=== PATIENT | female | born 1950 | race Caucasian/White ===

== ENCOUNTER → 2017-05-09 | Outpatient (CLI) | payer MEDICARE ==
[~2017-05-09] MED LIST: ASPIRIN125 MG PO; AZITHROMYCIN 2250 MG PO; CARISOPRODOL; COMBIVENT INH; GUAIFENESIN L1200 MG PO; HYDROCODONE; ONDANSETRON ODT4 MG PO; PREDNISONE 10 M10 M1 PO
== END ==
LOC: M.CT 10:37
DX: J43.8 Other emphysema (principal); R91.8 Other nonspecific abnormal finding of lung field; K21.9 Gastro-esophageal reflux disease without esophagitis; Z87.891 Personal history of nicotine dependence

== ENCOUNTER → 2020-04-05 | Outpatient (CLI) | payer MEDICARE, MEDICAID ==
[~2020-04-05] MED LIST changes: +BYSTOLIC 5 MG5 MG PO; +FLONASE 0.05%50 MCG NASAL; +IBUPROFEN 600600 M1 PO; +IMITREX100 MG PO; +NORCO 10-325 T1 EACH PO; +SOMA350 MG PO; +TRAZODONE HCL50 MG PO
== END ==
LOC: M.PC 10:12
PROVIDERS: ATTEND Anesthesiology Pain Medicine
DX: M19.90 Unspecified osteoarthritis, unspecified site (principal); M54.16 Radiculopathy, lumbar region; G43.109 Migraine with aura, not intractable, without status migrainosus; M46.1 Sacroiliitis, not elsewhere classified; F32.9 Major depressive disorder, single episode, unspecified; M35.3 Polymyalgia rheumatica

== ENCOUNTER → 2020-04-12 | Outpatient (CLI) | payer MEDICARE, MEDICAID | END | disposition home or self-care (01) | LOC: M.PC 08:40 | PROVIDERS: ATTEND Anesthesiology Pain Medicine | DX: M54.16 Radiculopathy, lumbar region (principal); G89.29 Other chronic pain; M35.3 Polymyalgia rheumatica; F32.9 Major depressive disorder, single episode, unspecified; M19.90 Unspecified osteoarthritis, unspecified site; Z98.890 Other specified postprocedural states; Z79.899 Other long term (current) drug therapy; Z88.8 Allergy status to other drugs, medicaments and biological substances ==

== ENCOUNTER → 2020-05-19 | Outpatient (CLI) | payer OTHER, MEDICAID | END | disposition home or self-care (01) | LOC: M.PC 08:22 | PROVIDERS: ATTEND Anesthesiology Pain Medicine | DX: M54.16 Radiculopathy, lumbar region (principal); G89.29 Other chronic pain; I10 Essential (primary) hypertension; J44.9 Chronic obstructive pulmonary disease, unspecified; F32.9 Major depressive disorder, single episode, unspecified; M53.3 Sacrococcygeal disorders, not elsewhere classified; M19.90 Unspecified osteoarthritis, unspecified site; G43.109 Migraine with aura, not intractable, without status migrainosus; M35.3 Polymyalgia rheumatica; Z98.890 Other specified postprocedural states; Z79.899 Other long term (current) drug therapy; Z90.710 Acquired absence of both cervix and uterus; Z90.49 Acquired absence of other specified parts of digestive tract ==

== ENCOUNTER → 2020-07-05 | Outpatient (CLI) | payer OTHER, MEDICAID ==
[~2020-07-05] MED LIST changes: +MOBIC15 MG PO
== END | disposition home or self-care (01) ==
LOC: M.PC 10:57
PROVIDERS: ATTEND Anesthesiology Pain Medicine
DX: M54.16 Radiculopathy, lumbar region (principal); G89.29 Other chronic pain; I10 Essential (primary) hypertension; J44.9 Chronic obstructive pulmonary disease, unspecified; G43.109 Migraine with aura, not intractable, without status migrainosus; M19.90 Unspecified osteoarthritis, unspecified site; F32.9 Major depressive disorder, single episode, unspecified; M35.3 Polymyalgia rheumatica; Z98.890 Other specified postprocedural states; Z79.899 Other long term (current) drug therapy; Z90.710 Acquired absence of both cervix and uterus; Z88.8 Allergy status to other drugs, medicaments and biological substances

== ENCOUNTER → 2020-08-04 | Outpatient (CLI) | payer OTHER, MEDICAID | LOC: M.PC 08-02 11:00 | PROVIDERS: ATTEND Anesthesiology Pain Medicine | DX: M48.07 Spinal stenosis, lumbosacral region (principal); M25.78 Osteophyte, vertebrae; M54.16 Radiculopathy, lumbar region; M35.3 Polymyalgia rheumatica; G43.909 Migraine, unspecified, not intractable, without status migrainosus; M19.90 Unspecified osteoarthritis, unspecified site; M53.3 Sacrococcygeal disorders, not elsewhere classified; F32.9 Major depressive disorder, single episode, unspecified ==

== ENCOUNTER → 2020-09-01 | Outpatient (CLI) | payer OTHER, MEDICAID | LOC: M.PC 09:30 | PROVIDERS: ATTEND Anesthesiology Pain Medicine | DX: M54.16 Radiculopathy, lumbar region (principal); J44.9 Chronic obstructive pulmonary disease, unspecified; G43.101 Migraine with aura, not intractable, with status migrainosus; M19.90 Unspecified osteoarthritis, unspecified site; M46.1 Sacroiliitis, not elsewhere classified; F32.9 Major depressive disorder, single episode, unspecified; M35.3 Polymyalgia rheumatica; M51.16 Intervertebral disc disorders with radiculopathy, lumbar region; M48.061 Spinal stenosis, lumbar region without neurogenic claudication ==

== ENCOUNTER → 2020-09-29 | Outpatient (CLI) | payer OTHER, MEDICAID | LOC: M.PC 09:53 | PROVIDERS: ATTEND Anesthesiology Pain Medicine | DX: M54.16 Radiculopathy, lumbar region (principal); J44.9 Chronic obstructive pulmonary disease, unspecified; G43.909 Migraine, unspecified, not intractable, without status migrainosus; M19.90 Unspecified osteoarthritis, unspecified site; F32.9 Major depressive disorder, single episode, unspecified; M35.3 Polymyalgia rheumatica; Z79.891 Long term (current) use of opiate analgesic; Z79.899 Other long term (current) drug therapy; Z88.5 Allergy status to narcotic agent; Z88.6 Allergy status to analgesic agent ==

== ENCOUNTER → 2020-10-11 | Outpatient (CLI) | payer OTHER, MEDICAID | END | disposition home or self-care (01) | LOC: M.PC 09:49 | PROVIDERS: ATTEND Anesthesiology Pain Medicine | DX: M54.16 Radiculopathy, lumbar region (principal); G89.29 Other chronic pain; I10 Essential (primary) hypertension; J44.9 Chronic obstructive pulmonary disease, unspecified; M19.90 Unspecified osteoarthritis, unspecified site; F32.9 Major depressive disorder, single episode, unspecified; G43.109 Migraine with aura, not intractable, without status migrainosus; Z98.890 Other specified postprocedural states; Z79.899 Other long term (current) drug therapy; Z90.710 Acquired absence of both cervix and uterus; Z88.8 Allergy status to other drugs, medicaments and biological substances ==

== ENCOUNTER → 2020-10-27 | Outpatient (CLI) | payer OTHER, MEDICAID | LOC: M.PC 09:00 | PROVIDERS: ATTEND Anesthesiology Pain Medicine | DX: M54.16 Radiculopathy, lumbar region (principal); J44.9 Chronic obstructive pulmonary disease, unspecified; G43.109 Migraine with aura, not intractable, without status migrainosus; I10 Essential (primary) hypertension; M19.90 Unspecified osteoarthritis, unspecified site; M41.9 Scoliosis, unspecified; F32.89 Other specified depressive episodes; M35.3 Polymyalgia rheumatica; M87.88 Other osteonecrosis, other site; Z90.710 Acquired absence of both cervix and uterus; Z68.22 Body mass index [BMI] 22.0-22.9, adult; Z88.8 Allergy status to other drugs, medicaments and biological substances; Z79.891 Long term (current) use of opiate analgesic; Z79.899 Other long term (current) drug therapy ==

== ENCOUNTER → 2020-11-22 | Outpatient (CLI) | payer OTHER, MEDICAID | END | disposition home or self-care (01) | LOC: M.PC 10:28 | PROVIDERS: ATTEND Anesthesiology Pain Medicine | DX: M54.16 Radiculopathy, lumbar region (principal); G89.29 Other chronic pain; I10 Essential (primary) hypertension; J44.9 Chronic obstructive pulmonary disease, unspecified; G43.109 Migraine with aura, not intractable, without status migrainosus; F32.9 Major depressive disorder, single episode, unspecified; M19.90 Unspecified osteoarthritis, unspecified site; Z98.890 Other specified postprocedural states; Z79.899 Other long term (current) drug therapy; Z88.8 Allergy status to other drugs, medicaments and biological substances ==

== ENCOUNTER → 2020-12-21 | Outpatient (CLI) | payer OTHER, MEDICAID ==
[~2020-12-21] MED LIST changes: +CARISOPRODOL 3350 M1 NG; +CARISOPRODOL 3350 M1 PO; +CRESTOR5 MG PO; +PERCOCET 5-3251 EACH PO; +XARELTO20 MG PO; +ZETIA10 MG PO
[2020-12-21 11:07] LABS: HEMATOCRIT 38.9 % (37.0-47.0); HEMOGLOBIN 13.1 gm/dL (12.0-15.0); MCH 29.6 pg (26.0-34.0); MCHC 33.6 g/dL (28.0-37.0); MPV 7.3 fl. (7.2-11.1); RBC 4.42 mil/uL (4.20-5.00); RDW-CV 14.4 % (10.5-14.5); WBC 5.1 thou/uL (4.0-11.0)
[2020-12-21 11:17] LABS: URINE BILIRUBIN NEGATIVE (Negative); URINE BLOOD TRACE (Negative); URINE CLARITY CLEAR; URINE COLOR YELLOW; URINE GLUCOSE-RANDOM NEGATIVE (Negative); URINE KETONES NEGATIVE (Negative); URINE LEUKOCYTES-REFLEX NEGATIVE (Negative); URINE NITRITE-REFLEX NEGATIVE (Negative); URINE PROTEIN NEGATIVE (Negative); URINE UROBILINOGEN 0.2 E.U./dl (0.2-1.0)
[2020-12-21 11:18] LABS: PROTIME 10.5 Seconds (9.20-11.50)
[2020-12-21 11:20] LABS: ALBUMIN 3.8 g/dL (3.4-5.0); CALCIUM 8.9 mg/dL (8.5-10.1); CREATININE 0.7 mg/dL (0.6-1.3); TOTAL BILIRUBIN 0.3 mg/dL (<0.1-1.0); TOTAL PROTEIN 7.1 g/dL (6.4-8.2)
--- NOTE | 2020-12-21 13:16 | EKG ---
[place] [address] ELECTROCARDIOGRAM REPORT Name: FLOYD ASHFORD Room: [facility]#: [id number] Admission: 12/21/20 Attend Phys: Sam Fierro, Discharge: Date of : 52 Date of Service: 12/21/20 1124 Report #: [id number] THIS REPORT FOR: //name// 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 12/21/20 1316 1124 1124 Fidel Galicia MD, [facility] /EPI
[2020-12-31 09:52] LABS: HEMOGLOBIN 11.4 gm/dL (12.0-15.0); MCH 29.7 pg (26.0-34.0); MCHC 33.5 g/dL (28.0-37.0); MCV 88.7 fL (80.0-100.0); MPV 7.4 fl. (7.2-11.1); RBC 3.84 mil/uL (4.20-5.00); RDW-CV 14.5 % (10.5-14.5); WBC 6.4 thou/uL (4.0-11.0)
[2020-12-31 10:08] LABS: ALBUMIN 2.7 g/dL (3.4-5.0); CALCIUM 8.9 mg/dL (8.5-10.1); CREATININE 0.6 mg/dL (0.6-1.3); POTASSIUM 3.3 mmol/L (3.5-5.1); TOTAL BILIRUBIN 0.4 mg/dL (<0.1-1.0); TOTAL PROTEIN 7.2 g/dL (6.4-8.2)
[2020-12-31 10:57] LABS: PROTIME 10.9 Seconds (9.20-11.50)
== END ==
LOC: M.LAB 12-20 16:54
PROVIDERS: ATTEND Orthopaedic Surgery
DX: Z01.812 Encounter for preprocedural laboratory examination (principal); Z01.818 Encounter for other preprocedural examination; Z20.822 Contact with and (suspected) exposure to COVID-19; M16.11 Unilateral primary osteoarthritis, right hip

== ENCOUNTER → 2020-12-22 | Outpatient (CLI) | payer OTHER, MEDICAID ==
[~2020-12-22] MED LIST changes: -CARISOPRODOL 3350 M1 NG; -CRESTOR5 MG PO; -PERCOCET 5-3251 EACH PO; -XARELTO20 MG PO; -ZETIA10 MG PO
== END ==
LOC: M.PC 10:19
PROVIDERS: ATTEND Anesthesiology Pain Medicine
DX: M54.16 Radiculopathy, lumbar region (principal); J44.9 Chronic obstructive pulmonary disease, unspecified; G43.109 Migraine with aura, not intractable, without status migrainosus; M19.90 Unspecified osteoarthritis, unspecified site; M46.1 Sacroiliitis, not elsewhere classified; F32.9 Major depressive disorder, single episode, unspecified; M35.3 Polymyalgia rheumatica

== ENCOUNTER 2020-12-27 09:34 | Inpatient (IN) | payer OTHER, MEDICAID ==
[~2020-12-27] VITALS: Ht 172.7 cm; Wt 68.0 kg
--- NOTE | ~2020-12-27 | OP ---
[address] [address] OPERATIVE REPORT Name: FLOYD ASHFORD Room: [address] IN .R.#: [id number] Admission: 12/27/20 Attend Phys: Rylee Paula Discharge: Date of : 52 Report #: [id number] THIS REPORT FOR: cc: Annalisa Reynaga Ghaison F. DO Greiner, Robert F. II DO ~ DATE OF SURGERY: 12/27/2020 PREOPERATIVE DIAGNOSIS: Right hip osteoarthritis. POSTOPERATIVE DIAGNOSIS: Right hip osteoarthritis. PROCEDURE: Right total hip arthroplasty. SURGEON: Sam Fierro II, DO INSPECTOR BALL POINTS: OWEN Montez ANESTHESIA: General endotracheal. ESTIMATED BLOOD LOSS: 200 mL. ANTIBIOTICS: Ancef preoperatively. DRAINS: Medium Hemovac. COMPLICATIONS: None. CONDITION: The patient stable to recovery room. IMPLANTS: Listed in operative record and progress note. BRIEF HISTORY: The patient in the preoperative area. Preoperative H and P was performed. Site was marked, questions were answered. Risks and benefits were discussed with the patient in detail about surgery. The patient wished to proceed, assuming all risks. DESCRIPTION OF PROCEDURE: The patient was taken to the operative suite, placed supine on the operating table, given appropriate anesthesia. The patient's operative hip was placed in a [place] table leg mahajan and sterilely prepped and draped in the supine position. Surgery began by longitudinal incision over the anterior portion of the hip, the skin and subcutaneous tissues. A small keyur was then made in tensor fascia, it was split along its fibers and retracted laterally. An H capsulotomy was then performed and careful hemostasis was maintained with electrocautery and Aquamantys. The head and neck cutting alignment guide was then checked with fluoroscopic [place] [id number] OPERATIVE REPORT Name: FLOYD ASHFORD Room: [address] [place] [facility]#: [id number] Admission: 12/27/20 Attend Phys: Rylee Paula Discharge: Date of : 52 Report #: [id number] was made in the head and neck and this was removed. Attention was turned to the acetabulum. Excess labrum was removed. It was reamed in sequential fashion up to the appropriate size. This showed excellent bleeding bone and excellent stability, excellent position on fluoroscopic guidance. The acetabular cup was then malleted into position and secured with 2 cancellous screws. Metal liner was then applied. The patient's leg was then rotated and extended in the [place] table to expose the femur. It was then broached in sequential fashion up to appropriate size. Appropriate neck was then trialed with appropriate head length and shown to have excellent fit and fill and excellent stability of hip throughout all range of motion. These trials were removed and the final stem was then malleted in position and the final head was then malleted in position. This was reduced in appropriate fashion, checked with C-arm for appropriate leg length and shown to have excellent leg length throughout the exam without evidence of dislocation upon range of motion and shuck testing. The wound was then copiously irrigated. Hemostasis was maintained with electrocautery and Aquamantys. Pain cocktail was injected. Drain was activated. H capsulotomy was closed with 1 Vicryl in vcouac-me-jvtak fashion. Tensor fascia was closed with 1 Vicryl in running fashion. Skin was closed with 2-0 Vicryl and a running 3-0 Monocryl and Dermabond. Sterile dressing was applied. The patient transported to recovery in stable condition. Counts were correct. By: [id number] Fierro II, DO /nt
[2020-12-27 20:03] VITALS: BP 143/57
[2020-12-28] VITALS: BP 136/60
[2020-12-28 04:00] VITALS: BP 160/69
--- NOTE | 2020-12-28 04:15 | NUR ---
PT A&OX4, VSS ON 2L O2, UP WITH ASSIST TO BSC, MED/SURG STATUS, HEMOVAC TO RT HIP, PRN PAIN MEDS REQUESTED AND GIVEN ORDERED. IV FLUIDS INFUSING ORDERED. WILL CONTINUE TO MONITOR.
[2020-12-28 04:41] LABS: HEMATOCRIT 33.6 % (37.0-47.0); HEMOGLOBIN 11.3 gm/dL (12.0-15.0)
--- NOTE | 2020-12-28 10:27 | NUR ---
CM ASSESSMENT: PT A&O. PT NORMALLY INDEPENDENT WITH ADL'S, ACTIVE AND DRIVES. PT RESIDES AT HOME WITH HER SON AND 2 GRANDCHILDREN. PT USED 0 DME PRIOR TO ADMIT. PT HAS 0 HX OF HH OR SNF. PT INFORMS THAT SHE PLAN TO RETURN HOME WITH HH AT D/C. CM WILL REMAIN AVAILABLE TO ASSIST AND FOLLOW NEEDED.
[2020-12-28 16:00] VITALS: BP 136/63
[2020-12-28 21:10] VITALS: BP 125/67
[2020-12-29] VITALS: BP 167/69
--- NOTE | 2020-12-29 04:25 | NUR ---
PT A&OX4, VSS ON 2L O2 - CONTINUOUS PULSE OX IN USE. IV FLUIDS INFUSING ORDERED. MED/SURG STATUS. PT HAS NOT REQUESTED PRN PAIN MEDS THIS SHIFT OF 424, REFUSED PAIN MEDS AT THIS TIME. PT UP TO BSC WITH ASSIST. PT SLEEPING WELL, WILL CONTINUE TO MONITOR.
[2020-12-29 04:30] LABS: HEMATOCRIT 34.5 % (37.0-47.0); HEMOGLOBIN 11.7 gm/dL (12.0-15.0)
[2020-12-29 11:52] VITALS: BP 133/69
[2020-12-29 16:37] VITALS: BP 132/68
[2020-12-29 20:00] VITALS: BP 155/82
--- NOTE | 2020-12-30 05:38 | NUR ---
PT A&O X 4. ON 2L WITH CONTINUOUS PULSE OX MONITOR. DRESSING TO RT HIP C/D/I. UP TO BSC WITH MIN ASSIST. OXY IR GIVEN X 1 FOR PAIN. DENIED N/V. SCD, MACIE OROZCOE IN PLACE. CALL LIGHT WITHIN REACH. WILL CONTINUE TO MONITOR.
[2020-12-30 08:55] VITALS: BP 140/73
[2020-12-30 13:28] LABS: CALCIUM 8.7 mg/dL (8.5-10.1); CREATININE 0.6 mg/dL (0.6-1.3); POTASSIUM 3.7 mmol/L (3.5-5.1)
[2020-12-30 16:00] VITALS: BP 140/64
--- NOTE | 2020-12-30 16:22 | NUR ---
PLAN OF CARE: PHYSICIAN INFORMS OF PLAN TO POSSIBLY D/C THE PT HOME WITH HH OVER THE WEEKEND PENDING PT BEING MEDICALLY STABLE. PT MAY NEED HOME OXYGEN AT D/C SHE REMAINS ON 2L-3L O2 AND DID NOT HAVE HOME O2 PRIOR TO ADMIT. CALL AND FAX PT'S HH AND D/C ORDERS TO [facility] AT D/C. CM WILL REMAIN AVAILABLE TO ASSIST AND FOLLOW NEEDED. [facility] PHONE: [phone] FAX: [phone]
--- NOTE | 2020-12-30 18:40 | NUR ---
PATIENT HAS REMAINED A&OX4, PLEASANT AND COOPERATIVE WITH CARES THIS SHIFT. MEDICATIONS ADMINISTERED ORDERED. PATIENT EATING/DRINKING THEREFORE IV FLUIDS NOT GIVEN. PRN PAIN MEDICATION ADMINISTERED TWICE THIS SHIFT PER PATIENT REQUEST. CALL LIGHT AND FREQUENTLY USED ITEMS WITHIN REACH.
[2020-12-30 19:45] VITALS: BP 153/63
--- NOTE | 2020-12-31 04:18 | NUR ---
PT A&O X 4. SITLL ON 2L. DRESSING TO RT HIP C/D/I. UP TO BSC WITH SBA. PAIN MANAGED WITH OXY IR AND NORCO. CALL LIGHT WITHIN REACH. WILL CONTINUE TO MONITOR.
[2020-12-31 16:00] VITALS: BP 136/68
--- NOTE | 2020-12-31 18:41 | NUR ---
Pt has been in pain much of the day. Given PRN oxycodone once. Still no BM. Able to transfer slowly with assistance. O2 sat 92% on RA. Hoping to be discharged soon.
[2020-12-31 19:45] VITALS: BP 134/60
[2021-01-01] VITALS: BP 132/68
[2021-01-01 04:01] VITALS: BP 160/69
[2021-01-01 14:11] VITALS: BP 160/69
[2021-01-01 16:00] VITALS: BP 148/65
--- NOTE | 2021-01-01 17:23 | NUR ---
AMBULAORY WITH MINIMAL, STANDBY ASSISTANCE TO BATHROOM. PAIN MEDS PROVIDED TWICE DURING SHIFT. CAUTIOUSLY LOOKING FORWARD TO DISCHARGE TOMORROW.
[2021-01-01 20:00] VITALS: BP 167/58
--- NOTE | 2021-01-02 06:02 | NUR ---
ASSUMED PT CARE AT APPROX 1930. PT IS AWAKE AND ORIENTED X4. PT IS NOT IN DISTRESS, NO DESATURATIONS NOTED ON ROOM AIR. PT C/O PAIN ON RIGHT HIP, PARTIALLY RELEIVED BY PAIN MEDS GIVEN PER JUN. PT IS ABLE TO REST THROUGHOUT THIS SHIFT. CALL LIGHT WITHIN REACH. HOURLY ROUNDING DONE FOR PT SAFETY.
[2021-01-02 08:25] VITALS: BP 157/67
[2021-01-02 11:34] VITALS: BP 160/69
[2021-01-02 11:37] VITALS: BP 160/69
[2021-01-02 11:51] VITALS: BP 160/69
--- NOTE | 2021-01-02 14:41 | NUR ---
Reviewed discharge information with patient and with daughter. Pt states understanding and will follow up with surgeon on 01/11. Assisted to vehicle by hospital staff.
--- NOTE | 2021-01-02 14:45 | NUR ---
PLAN OF CARE: PHYSICIAN INFORMS OF PLAN FOR THE PT TO D/C HOME TODAY WITH HH. R.T. REST AND EX OX COMPLETED AND INDICATES THAT THE PT DOES NOT NEED HOME OXYGEN. [facility] ACCEPTED PT AND WILL CONTACT THE PT TO ARRANGE A TIME TO VISIST. [facility] [employer] CONFIRMS THAT THE PT QUALIFIES FOR WALKER. CM TO FAX [facility] [employer] WALKER ORDER. P.T. TO DISPENSE WALKER TO PT. CM WILL REMAIN AVAILABLE TO ASSIST AND FOLLOW NEEDED. [facility] PHONE: [phone] FAX: [phone]
== END 2021-01-02 14:15 | disposition home health service (06) | DRG 470 ==
LOC: M.TBA 09:34 → M.2W 09:34 → M.ORTHSURG 09:46 → M.2W 19:17
PROVIDERS: Internal Medicine; Orthopaedic Surgery; ADMIT Internal Medicine; ATTEND Internal Medicine
PROC: 0SR902Z Replacement of Right Hip Joint with Metal on Polyethylene Synthetic Substitute, Open Approach (ICD-10-PCS; principal; 2020-12-27)
DX: M16.11 Unilateral primary osteoarthritis, right hip (principal); Z20.822 Contact with and (suspected) exposure to COVID-19; Z86.16 Personal history of COVID-19; Z79.899 Other long term (current) drug therapy

== ENCOUNTER 2021-01-10 18:09 | Observation (INO) | payer OTHER, MEDICAID ==
[~2021-01-10] VITALS: Ht 152.4 cm; Wt 67.1 kg
--- NOTE | ~2021-01-10 | EEG ---
[address] [address] EEG STUDY REPORT Name: FLOYD ASHFORD Room: [address] [place]#: [id number] Admission: 01/10/21 Attend Phys: Quentin Joshua MD Discharge: 01/11/21 Date of : 52 Report #: [id number] THIS REPORT FOR: cc: Annalisa Reynaga Ghaison F. DO Khosla, Parveen K. MD ~ DATE OF SERVICE: 01/11/2021 This patient is complaining of dizziness. EEG was done by placing the electrode by standard 10-20 system of electrode placement. Both referential and sequential montages were used for recording. Background activity in this patient's EEG is about 9 Hz and 30 microvolt. This is intermixed with some theta range slowing on both sides. The patient went to sleep that is associated with prominent slowing on both sides. Photic stimulation is unremarkable. No active epileptiform activity was noticed during this record. IMPRESSION: This patient's EEG is intermixed with theta range slowing on both sides, that is a nonspecific abnormality which can occur with dementia, encephalopathy, effect of psychotropic medication, etc. Clinical correlation is recommended. By: [id number] Garcia MD /nt
[2021-01-10 18:13] VITALS: BP 161/77
[2021-01-10] MEDS ORDERED: XARELTO20 MG PO (18:18)
[2021-01-10] MEDS ORDERED: ZETIA10 MG PO (18:18)
[2021-01-10] MEDS ORDERED: CRESTOR5 MG PO (18:18)
[2021-01-10] MEDS ORDERED: PERCOCET 5-3251 EACH PO (18:19)
[2021-01-10 18:47] LABS: ABSOLUTE BASOPHILS 0.1 thou/uL (0.0-0.2); ABSOLUTE EOSINOPHILS 0.3 thou/uL (0.0-0.7); ABSOLUTE LYMPHOCYTES 2.4 thou/uL (0.8-5.3); ABSOLUTE MONOCYTES 0.6 thou/uL (0.0-1.2); ABSOLUTE NEUTROPHILS 4.8 thou/uL (1.6-8.1); HEMATOCRIT 34.8 % (37.0-47.0); HEMOGLOBIN 11.7 gm/dL (12.0-15.0); LYMPHOCYTES 29.5 %; MCH 30.1 pg (26.0-34.0); MCHC 33.7 g/dL (28.0-37.0); MCV 89.2 fL (80.0-100.0); MPV 7.1 fl. (7.2-11.1); NUCLEATED RBCS 0 /100WBC; PLATELET COUNT* 511 thou/uL (150-400); POLYS 58.5 %; RDW-CV 14.4 % (10.5-14.5); WBC 8.2 thou/uL (4.0-11.0)
[2021-01-10 18:51] LABS: CREATININE 0.8 mg/dL (0.6-1.3); POTASSIUM 4.1 mmol/L (3.5-5.1)
[2021-01-10 18:56] LABS: ALBUMIN 3.4 g/dL (3.4-5.0); TOTAL BILIRUBIN 0.2 mg/dL (<0.1-1.0); TOTAL PROTEIN 7.2 g/dL (6.4-8.2)
[2021-01-10 19:11] LABS: URINE BILIRUBIN NEGATIVE (Negative); URINE BLOOD TRACE (Negative); URINE CLARITY CLEAR; URINE COLOR YELLOW; URINE GLUCOSE-RANDOM NEGATIVE (Negative); URINE KETONES NEGATIVE (Negative); URINE LEUKOCYTES NEGATIVE (Negative); URINE NITRITE NEGATIVE (Negative); URINE PROTEIN NEGATIVE (Negative); URINE SPECIFIC GRAVITY 1.015 (1.005-1.030); URINE UROBILINOGEN 0.2 E.U./dl (0.2-1.0)
[2021-01-10 19:19] LABS: APTT 30.2 Seconds (25.0-31.3); INR 1.1; PROTIME 11.2 Seconds (9.20-11.50)
[2021-01-10 19:24] LABS: CHOLESTEROL 247 mg/dL (<200); HDL CHOLESTEROL 36 mg/dL (>40); LDL CHOLESTEROL 150 mg/dL (<100); TC:HDL 6.9 Ratio (Not establshd); TRIGLYCERIDE 309 mg/dL (<150); VLDL 62 mg/dL (<40)
[2021-01-10 19:26] LABS: SERUM ASSESSMENT Clear
[2021-01-10 23:45] VITALS: BP 171/70
[2021-01-11] VITALS (8 sets, daily range): BP systolic 137–163; BP diastolic 62–75
[2021-01-11 09:07] LABS: ALBUMIN 2.9 g/dL (3.4-5.0); CALCIUM 8.8 mg/dL (8.5-10.1); CREATININE 0.7 mg/dL (0.6-1.3); POTASSIUM 3.9 mmol/L (3.5-5.1); TOTAL BILIRUBIN 0.2 mg/dL (<0.1-1.0); TOTAL PROTEIN 6.5 g/dL (6.4-8.2)
--- NOTE | 2021-01-11 15:46 | EKG ---
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 : 1950 Requested By: Vijay Neff Order Number: [id number] MD: Corby Saab Measurements Intervals [place] Rate: 99 P: 44 ME: 219 QRS: -10 QRSD: 91 T: 56 QT: 324 QTc: 416 Interpretive Statements Artifact noted Sinus rhythm Prolonged ME interval Left ventricular hypertrophy Minimal ST elevation, lateral leads Compared to ECG 12/21/2020 11:24:34 First degree AV block now present Left ventricular hypertrophy now present Minor ST-T changes have occurred Electronically Signed On 01-11-2021 15:45:54 CDT by Corby Saab [email or web address] <ELECTRONICALLY SIGNED> By: Corby Saab MD, [facility] 01/11/21 1545 14 14 Corby Saab MD, [facility] /EPI
[2021-01-12 02:06] LABS: GLYCOHEMOGLOBIN (HGB A1C) 5.9 % (4.8-5.6)
== END 2021-01-11 20:00 | disposition home or self-care (01) ==
LOC: M.ERS 18:09 → M.2W 22:05 → M.TBA-ER 22:05 → M.2W 22:05
PROVIDERS: Internal Medicine; Physician Assistant; ADMIT Internal Medicine; ATTEND Internal Medicine
DX: G45.9 Transient cerebral ischemic attack, unspecified (principal); R42 Dizziness and giddiness; Z20.822 Contact with and (suspected) exposure to COVID-19; G43.909 Migraine, unspecified, not intractable, without status migrainosus; I10 Essential (primary) hypertension; E78.5 Hyperlipidemia, unspecified; Z79.899 Other long term (current) drug therapy; Z86.73 Personal history of transient ischemic attack (TIA), and cerebral infarction without residual deficits; Z88.5 Allergy status to narcotic agent; Z90.49 Acquired absence of other specified parts of digestive tract; Z90.710 Acquired absence of both cervix and uterus

== ENCOUNTER → 2021-02-23 | Outpatient (CLI) | payer OTHER, MEDICAID ==
[~2021-02-23] MED LIST changes: +CARISOPRODOL 3350 M1 NG; +CRESTOR5 MG PO; +PERCOCET 5-3251 EACH PO; +XARELTO20 MG PO; +ZETIA10 MG PO
== END ==
LOC: M.PC 02-21 10:30
PROVIDERS: ATTEND Anesthesiology Pain Medicine
DX: J44.9 Chronic obstructive pulmonary disease, unspecified (principal); M35.3 Polymyalgia rheumatica; M19.90 Unspecified osteoarthritis, unspecified site; M46.1 Sacroiliitis, not elsewhere classified; M51.26 Other intervertebral disc displacement, lumbar region; M48.061 Spinal stenosis, lumbar region without neurogenic claudication; M48.07 Spinal stenosis, lumbosacral region; I10 Essential (primary) hypertension; E78.5 Hyperlipidemia, unspecified; F34.89 Other specified persistent mood disorders; G43.909 Migraine, unspecified, not intractable, without status migrainosus; Z96.641 Presence of right artificial hip joint; Z88.8 Allergy status to other drugs, medicaments and biological substances; Z79.899 Other long term (current) drug therapy

== ENCOUNTER → 2021-03-23 | Outpatient (CLI) | payer OTHER, MEDICAID ==
[~2021-03-23] MED LIST changes: +HYDROCODON-ACE1 EAC5 PO
== END | disposition home or self-care (01) ==
LOC: M.PC 10:07
PROVIDERS: ATTEND Anesthesiology Pain Medicine
DX: M54.16 Radiculopathy, lumbar region (principal); G89.29 Other chronic pain; M19.90 Unspecified osteoarthritis, unspecified site; J44.9 Chronic obstructive pulmonary disease, unspecified; F32.9 Major depressive disorder, single episode, unspecified; G43.909 Migraine, unspecified, not intractable, without status migrainosus; E78.5 Hyperlipidemia, unspecified; Z98.890 Other specified postprocedural states; Z79.899 Other long term (current) drug therapy; Z86.73 Personal history of transient ischemic attack (TIA), and cerebral infarction without residual deficits; Z96.641 Presence of right artificial hip joint; Z88.8 Allergy status to other drugs, medicaments and biological substances

== ENCOUNTER → 2021-05-18 | Outpatient (CLI) | payer OTHER, MEDICAID | LOC: M.PC 10:30 | PROVIDERS: ATTEND Anesthesiology Pain Medicine | DX: M51.16 Intervertebral disc disorders with radiculopathy, lumbar region (principal); M35.3 Polymyalgia rheumatica; M79.604 Pain in right leg; J44.9 Chronic obstructive pulmonary disease, unspecified; G43.909 Migraine, unspecified, not intractable, without status migrainosus; M19.90 Unspecified osteoarthritis, unspecified site; I10 Essential (primary) hypertension; M46.1 Sacroiliitis, not elsewhere classified; F34.89 Other specified persistent mood disorders; Z88.8 Allergy status to other drugs, medicaments and biological substances; Z79.899 Other long term (current) drug therapy ==